=== PATIENT | male | born 1975 | race Caucasian/White ===

== ENCOUNTER 2021-11-13 11:02 | Emergency (ER) | payer OTHER, MEDICARE ==
[2021-11-13] MEDS ORDERED: Meclizine 25 MG Tab PO ONE ×2 (11:03→11:11)
[2021-11-13] MEDS ORDERED: Ondansetron 4 MG Tab.DIS PO ONE ×2 (11:03→12:36)
[2021-11-13] MEDS ORDERED: Acetaminophen 500 MG Tab PO ONE (11:09)
[2021-11-13 16:23] VITALS: BP 130/78; PULSE 79
== END 2021-11-13 14:35 | disposition home or self-care (01) ==
LOC: FB.ED 11:02
DX: S06.0X0A Concussion without loss of consciousness, initial encounter (principal); S60.221A Contusion of right hand, initial encounter; R42 Dizziness and giddiness; R50.9 Fever, unspecified; I10 Essential (primary) hypertension; E66.9 Obesity, unspecified; Z88.8 Allergy status to other drugs, medicaments and biological substances; Z20.822 Contact with and (suspected) exposure to COVID-19; Y04.0XXA Assault by unarmed brawl or fight, initial encounter
CPT/HCPCS: 29125; 36415; 70450; 70486; 71045; 73130; 85027; 87635; 99284; A9270; Q0162; 99282; U0002

== ENCOUNTER 2021-11-19 17:39 | Emergency (ER) | payer OTHER, MEDICARE ==
[2021-11-19] MEDS ORDERED: Azithromycin 250 MG Tab PO ONE (17:40)
[2021-11-19] MEDS ORDERED: Acetaminophen/HYDROcodone 325-5 MG Tab PO ONE (17:40)
[2021-11-19] MEDS ORDERED: Acetaminophen/HYDROcodone 325-7.5 MG Tab PO STA (18:04)
[2021-11-19 20:45] VITALS: BP 142/84; PULSE 81
== END 2021-11-19 19:25 | disposition home or self-care (01) ==
LOC: FB.ED 17:39
DX: S22.32XA Fracture of one rib, left side, initial encounter for closed fracture (principal); J18.9 Pneumonia, unspecified organism; J45.909 Unspecified asthma, uncomplicated; I10 Essential (primary) hypertension; E66.9 Obesity, unspecified; Z68.30 Body mass index [BMI] 30.0-30.9, adult; Z88.6 Allergy status to analgesic agent; Z79.899 Other long term (current) drug therapy; X58.XXXA Exposure to other specified factors, initial encounter
CPT/HCPCS: 36415; 71101; 85025; 94150; 99284; A9270